=== PATIENT | female | born 1985 | race Caucasian/White ===

== ENCOUNTER 2017-10-16 09:56 | Inpatient (IN) | payer MEDICAID ==
[~2017-10-16] VITALS: Ht 165.1 cm; Wt 101.6 kg
[2017-10-16] MEDS ORDERED: DEXT 5%/LR + PITOCIN 20UNITS/L 1,000 ML IV SCH ×2 (09:58→11:14)
[2017-10-16] MEDS ORDERED: LACTATED RINGERS 1,000 ML IV SCH (09:58)
[2017-10-16] MEDS ORDERED: NALOXONE HCL 0.4 MG/ML 1ML VIAL IM PRN (10:00)
[2017-10-16] MEDS ORDERED: METHYLERGONOVINE MALEATE 0.2 MG/ML IM PRN (10:00)
[2017-10-16] MEDS ORDERED: BUTORPHANOL TARTRATE 2 MG/ML VIAL IV PRN (10:00)
[2017-10-16] MEDS ORDERED: LIDOCAINE HCL 1% 20ML VIAL (Pyxis) INJ INFIL SCH (10:00)
[2017-10-16] MEDS ORDERED: CARBOPROST TROMETHAMINE 250 MCG/ML AMPUL IM PRN (10:00)
[2017-10-16 10:43] LABS: BASOPHILS % 0.3 % (0.0-2.0); EOSINOPHILS % 0.5 % (0.0-5.0); HEMATOCRIT. 36.5 % (36.0-48.0); HEMOGLOBIN. 12.5 g/dL (12.0-16.0); LYMPHOCYTES % 20.1 % (20.0-50.0); MEAN CORPUSCULAR HEMOGLOBIN 31.6 pg (28.0-32.0); MEAN PLATELET VOLUME 11.3 fl (7.4-10.4); MONOCYTES % 5.2 % (2.0-8.0); NEUTROPHILS % 73.9 % (40.0-76.0); PLATELET 144 x1000/uL (130-400); RED BLOOD CELL COUNT 3.97 mill/uL (4.2-5.4); RED CELL DISTRIBUTION WIDTH 13.2 % (11.6-14.6)
[2017-10-16 10:48] LABS: CLARITY URINE CLEAR (CLEAR); COLOR URINE YELLOW (YELLOW); KETONES URINE NEGATIVE (NEGATIVE); LEUKOCYTE ESTERASE URINE 1+ (NEGATIVE); NITRITE URINE NEGATIVE (NEGATIVE); OCCULT BLOOD URINE 2+ (NEGATIVE); PROTEIN URINE NEGATIVE (NEGATIVE); SPECIFIC GRAVITY URINE 1.024 (1.005-1.030)
[2017-10-16 11:11] LABS: *BARBITURATES SCREEN URINE NEGATIVE (NEGATIVE); OPIATES URINE SCREEN NEGATIVE (NEGATIVE); PHENCYCLIDINE URINE SCREEN NEGATIVE (NEGATIVE)
[2017-10-16 11:12] LABS: *AMPHETAMINES SCREEN URINE NEGATIVE (NEGATIVE); *BENZODIAZEPINES SCREEN URINE NEGATIVE (NEGATIVE); CANNABINOID URINE SCREEN NEGATIVE (NEGATIVE)
[2017-10-16 11:13] LABS: *COCAINE SCREEN URINE NEGATIVE (NEGATIVE)
[2017-10-16] MEDS ORDERED: BISACODYL 10MG SUPP PR PRN (11:15)
[2017-10-16] MEDS ORDERED: HEMORRHOIDAL SUPP PR PRN (11:15)
[2017-10-16] MEDS ORDERED: DIPHENHYDRAMINE 25MG CAPSULE PO PRN (11:15)
[2017-10-16] MEDS ORDERED: RHO(D) IMMUNE GLOBULIN 300 MCG/SYR IM PRN (11:15)
[2017-10-16] MEDS ORDERED: ACETAMINOPHEN WITH CODEINE 300/30MG TABLET PO PRN ×2 (11:15)
[2017-10-16] MEDS ORDERED: IBUPROFEN 400MG TABLET PO PRN (11:15)
[2017-10-16 11:18] LABS: METHADONE URINE SCREEN NEGATIVE (NEGATIVE)
[2017-10-16 11:38] LABS: RUBELLA IGG 124.8 IU/mL (4.99-10)
[2017-10-16 11:39] LABS: HEPATITIS B SURFACE ANTIGEN NEGATIVE
[2017-10-16 13:10] VITALS: BP 101/46
[2017-10-16 13:40] VITALS: BP 100/51
[2017-10-16 16:30] VITALS: BP 97/51
[2017-10-16] MEDS: SIMETHICONE 80MG TABLET CHEW PO SCH ×3 (17:04→21:03)
[2017-10-16] MEDS: GLYCERIN/WITCH HAZEL LEAF MEDICATED PAD TOP PRN (17:07)
[2017-10-16 20:00] VITALS: BP 103/57
[2017-10-16] MEDS: DOCUSATE SODIUM 100MG CAPSULE PO SCH (21:02)
[2017-10-17 06:00] VITALS: BP 101/59
[2017-10-17 07:58] VITALS: BP 98/60
[2017-10-17] MEDS: SIMETHICONE 80MG TABLET CHEW PO SCH ×4 (08:34→21:35)
[2017-10-17] MEDS: PRENATAL VIT/FE FUMARATE/FA TABLET PO SCH (08:35)
[2017-10-17 10:12] LABS: BASOPHILS % 0.4 % (0.0-2.0); EOSINOPHILS % 2.2 % (0.0-5.0); HEMATOCRIT. 34.7 % (36.0-48.0); HEMOGLOBIN. 11.8 g/dL (12.0-16.0); LYMPHOCYTES % 21.6 % (20.0-50.0); MEAN CORPUSCULAR HEMOGLOBIN 31.7 pg (28.0-32.0); MEAN CORPUSCULAR VOLUME 92.8 fL (81.0-99.0); MEAN PLATELET VOLUME 11.2 fl (7.4-10.4); MONOCYTES % 5.2 % (2.0-8.0); NEUTROPHILS % 70.6 % (40.0-76.0); PLATELET 137 x1000/uL (130-400); RED BLOOD CELL COUNT 3.74 mill/uL (4.2-5.4); RED CELL DISTRIBUTION WIDTH 13.4 % (11.6-14.6)
[2017-10-17] MEDS: FERROUS SULFATE 325MG TABLET PO SCH ×2 (12:18→17:14)
[2017-10-17 16:00] VITALS: BP 101/55
[2017-10-17 20:30] VITALS: BP 104/55
[2017-10-17] MEDS: DOCUSATE SODIUM 100MG CAPSULE PO SCH (21:34)
[2017-10-17] MEDS: GLYCERIN/WITCH HAZEL LEAF MEDICATED PAD TOP PRN (21:38)
[2017-10-18 04:15] VITALS: BP 100/58
[2017-10-18 07:56] VITALS: BP 103/50
[2017-10-18] MEDS: PRENATAL VIT/FE FUMARATE/FA TABLET PO SCH (08:34)
[2017-10-18] MEDS: FERROUS SULFATE 325MG TABLET PO SCH (08:34)
[2017-10-18] MEDS: SIMETHICONE 80MG TABLET CHEW PO SCH (08:34)
[2017-10-18] MEDS ORDERED: TETANUS, DIPHTHERIA, PERTUSSIS VAC/PF 0.5ML (>7YR OLD) IM ONE (10:00)
[2017-10-18] MEDS ORDERED: MEDROXYPROGESTERONE ACETATE 150MG/ML VIAL IM NR (11:30)
== END 2017-10-18 12:00 | disposition home or self-care (01) | DRG 560 ==
LOC: L&D 09:56 → OBSVTOIN 10:46 → 7EST PP/OB 13:10
PROVIDERS: ADMIT Obstetrics & Gynecology; ATTEND Specialist
PROC: 10E0XZZ Delivery of Products of Conception, External Approach (ICD-10-PCS; principal; 2017-10-16 10:46)
DX: O80 Encounter for full-term uncomplicated delivery (principal); Z37.0 Single live birth; Z3A.38 38 weeks gestation of pregnancy
CPT/HCPCS: 36415; 80305; 81003; 85025; 85610; 85730; 86592; 86703; 86762; 86850; 86900; 87086; 87340; 90715; 99281; G0378; J1050; J2590; J7120